=== PATIENT | female | born 1965 | race Caucasian/White ===

== ENCOUNTER 2017-12-21 05:35 | Emergency (ER) | payer MEDICAID ==
[~2017-12-21] VITALS: Ht 162.6 cm; Wt 54.4 kg
--- NOTE | 2017-12-21 05:58 | NUR ---
DR. LANE AGRAWAL MD AT BEDSIDE FOR MSE.
[2017-12-21] MEDS ORDERED: AZITHROMYCIN 250 MG TABLET PO ONE (06:15)
[2017-12-21] MEDS ORDERED: CEFTRIAXONE 500 MG VIAL IM ONE (06:15)
[2017-12-21] MEDS ORDERED: ONDANSETRON ODT 4 MG TAB.RAPDIS SL ONE (06:15)
[2017-12-21] MEDS ORDERED: AZITHROMYCIN 250 MG TABLET ONE (06:17)
[2017-12-21] MEDS ORDERED: ONDANSETRON ODT 4 MG TAB.RAPDIS ONE (06:17)
[2017-12-21] MEDS ORDERED: CEFTRIAXONE 500 MG VIAL ONE (06:17)
[2017-12-21] MEDS ORDERED: HYDROMORPHONE 1 MG/1 ML DISP.SYRIN IM ONE (06:30)
[2017-12-21] MEDS ORDERED: diphenhydrAMINE 50 MG/1 ML VIAL IM ONE (06:30)
--- NOTE | 2017-12-21 06:35 | NUR ---
Patient discharged to home in stable conditon. Written and verbal after care instructions given. Patient verbalizes understanding of instructions.
[2017-12-21 06:36] VITALS: BP 121/74
[2017-12-22 22:14] LABS: *GC NAA Negative (Negative); *TRIC.VAG. NAA Negative (Negative)
== END 2017-12-21 06:38 | disposition home or self-care (01) ==
LOC: ER 05:47
DX: Z11.3 Encounter for screening for infections with a predominantly sexual mode of transmission (principal); F11.10 Opioid abuse, uncomplicated; Z90.49 Acquired absence of other specified parts of digestive tract
CPT/HCPCS: 36415; 86592; 87491; 87536; 87806; A4663; J0696; J3490; Q0144; Q0162